=== PATIENT | female | born 1955 | race Caucasian/White ===

== ENCOUNTER 2016-10-27 12:58 | Emergency (ER) | payer OTHER ==
[~2016-10-27 12:58] MED LIST: ABILIFY PO; ALBUTEROL17 GM INH; ATENOLOL PO; CYMBALTA; DIAZEPAM PO; DOXYCYCLINE HY100 M1 PO; HCTZ PO; IMITREX PO; LAMICTAL PO; LISINOPRIL20 MG PO; MEVACOR PO; MUCINEX DM1 TAB.SR . PO; NITROGLYGERIN0.4 MG; NORVASC PO; OMEPRAZOLE40 MG PO; PHENERGAN PR; PHENERGAN25 M1; PREMPRO 0.45/1.1 TAB PO; SEROQUEL PO; ZANAFLEX PO; ZANTAC PO; ZANTAC300 MG PO; ZITHROMAX PO; ZOFRAN ODT4 MG PO
== END 2016-10-27 13:30 | disposition home or self-care (01) ==
LOC: SED 12:58
DX: S80.12XA Contusion of left lower leg, initial encounter (principal); F17.210 Nicotine dependence, cigarettes, uncomplicated; Z90.49 Acquired absence of other specified parts of digestive tract; Z90.710 Acquired absence of both cervix and uterus; Z79.899 Other long term (current) drug therapy; Z88.1 Allergy status to other antibiotic agents; Z88.0 Allergy status to penicillin; Z88.5 Allergy status to narcotic agent; Z88.8 Allergy status to other drugs, medicaments and biological substances; X58.XXXA Exposure to other specified factors, initial encounter
CPT/HCPCS: 99283